=== PATIENT | female | born 1990 | race Caucasian/White ===

== ENCOUNTER 2017-09-13 10:13 | Emergency (ER) | payer OTHER ==
[2017-09-13] MEDS ORDERED: LIDOCAINE VISCOUS 2% SOLN 15 ML UDC ONE (11:09)
[2017-09-13] MEDS ORDERED: SMZ./TMP. 800/160 MG TABLET ONE (11:39)
--- NOTE | 2017-09-13 12:04 | ER ---
Nurse's Notes [facility] Name: Mirta Norton Age: 27 yrs Sex: Female : 1990 Arrival Date: 09/13/2017 Time: 10:16 Bed 19 Private MD: None, None Diagnosis: Cyst of Bartholin's gland Presentation: 09/13 10:24 Presenting complaint: Patient states: Bartholin's cyst that became inflamed today. aj Patient reports she has had this cyst drained and marsupialize previously. Transition of care: patient was not received from another setting of care. Onset of symptoms was September 13, 2017. Initial Sepsis Screen: Does the patient meet any 2 criteria? No. Patient's initial sepsis screen is negative. Does the patient have a suspected source of infection? No. Patient's initial sepsis screen is negative. Care prior to arrival: None. 10:24 Method Of Arrival: Ambulatory aj 10:24 Acuity: FILEMON 4 aj Triage Assessment: 10:25 General: Appears in no apparent distress. uncomfortable, Behavior is calm, cooperative, aj appropriate for age. Pain: Complains of pain in right labia minora and left labia minora. Neuro: Level of Consciousness is awake, alert, obeys commands, Oriented to person, place, time, situation, Appropriate for age. Respiratory: Airway is patent Respiratory effort is even, unlabored, Respiratory pattern is regular, symmetrical. GI: Reports. : Reports pain in suprapubic area. Derm: Skin is intact, is healthy with good turgor, Skin is pink, warm \T\ dry. normal. 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 - Social history:: Smoking status: Patient/guardian denies using tobacco. Screenin:33 Abuse screen: Denies threats or abuse. Nutritional screening: No deficits noted. em Tuberculosis screening: No symptoms or risk factors identified. Fall Risk None identified. Assessment: 10:44 General: Appears in no apparent distress. uncomfortable, Behavior is cooperative, em Reports having a problem in her pelvic area. Pain: Complains of pain in pelvis Pain currently is 10 out of 10 on a pain scale. Neuro: Level of Consciousness is awake, alert, obeys commands, Oriented to person, place, time, situation. Cardiovascular: Capillary refill < 3 seconds Patient's skin is warm and dry. Respiratory: Airway is patent Respiratory effort is even, unlabored, Respiratory pattern is regular, symmetrical. GI: Abdomen is flat. : No signs and/or symptoms were reported regarding the genitourinary system. EENT: No signs and/or symptoms were reported regarding the EENT system. Derm: Skin is intact, Skin is pink, warm \T\ dry. Musculoskeletal: Range of motion: intact in all extremities. 11:00 Reassessment: Patient appears in no apparent distress at this time. I agree with the iw above assessment by Rell Otero LVN. 11:30 Reassessment: Patient appears in no apparent distress at this time. Patient and/or em family updated on plan of care and expected duration. Pain level reassessed. Patient is alert, oriented x 3, equal unlabored respirations, skin warm/dry/pink. 12:20 Reassessment: Patient appears in no apparent distress at this time. Patient and/or em family updated on plan of care and expected duration. Pain level reassessed. Patient is alert, oriented x 3, equal unlabored respirations, skin warm/dry/pink. Vital Signs: 10:25 BP 124 / 97; Pulse 119; Resp 20; Temp 98.1; Pulse Ox 100% on R/A; Weight 70.31 kg; aj Height 5 ft. 0 in. (152.40 cm); Pain 9/10; 11:41 BP 117 / 82; Pulse 80; Resp 14; Pulse Ox 100% on R/A; mh5 10:25 Body Mass Index 30.27 (70.31 kg, 152.40 cm) aj ED Course: 10:16 Patient arrived in ED. mr 10:17 None, None is Private Physician. mr 10:25 Triage completed. aj 10:25 Arm band placed on left wrist. Patient placed in an exam room. aj 10:28 Loraine Ridley FNP-C [facility]. kb 10:28 Cornell Burch MD is Attending Physician. kb 10:32 Rell Otero LVN is Primary Nurse. em 10:33 Patient has correct armband on for positive identification. Placed in gown. Bed in low em position. Call light in reach. 12:23 Cynthia Brady MD is Referral Physician. kb 12:30 No provider procedures requiring assistance completed. Patient did not have IV access em during this emergency room visit. Administered Medications: 11:15 Drug: Viscous Lidocaine Liquid (4 %) 10 ml {Note: administered per NP. Loraine} Route: em Mucous Membrane; 12:00 Follow up: Response: No adverse reaction; Pain is decreased em 11:45 Drug: Bactrim (160 mg-800 mg (DS) 1 tablet Route: PO; em 12:27 Follow up: Response: No adverse reaction em Outcome: 12:04 Discharge ordered by MD. kb 12:30 Discharged to home ambulatory. em 12:30 Condition: good 12:30 Discharge instructions given to patient. 12:30 Instructed on discharge instructions, follow up and referral plans. medication usage, Demonstrated understanding of instructions, follow-up care, medications, Prescriptions given X 2. 12:31 Patient left the ED. em Signatures: Loraine Ridley, MARBLEIZING MACHINE TENDER-C MARBLEIZING MACHINE TENDER-Ckb Noreen Pires RN Tatianna Samayoa mr Rell Otero LVN LVN em María Elena Jane, TIARRA MAYEN Tatianna Benson [facility] Corrections: (The following items were deleted from the chart) 10:33 10:33 No provider procedures requiring assistance completed. em em
--- NOTE | 2017-09-13 12:04 | EDPHYS ---
Physician Documentation [facility] Name: Mirta Norton Age: 27 yrs Sex: Female : 1990 Arrival Date: 09/13/2017 Time: 10:16 Bed 19 Private MD: None, None ED Physician Cornell Burch HPI: 09/13 11:13 This 27 yrs old Female presents to ER via Ambulatory with complaints of Cyst. kb 11:51 the patient presents with a swollen area of the right labia majora and right labia kb minora. Description: erythematous, swollen. Onset: The symptoms/episode began/occurred yesterday. Possible cause(s): history of bartholin cyst . Associated signs and symptoms: Pertinent positives: erythema, swelling, Pertinent negatives: discharge, drainage, foreign body sensation, fever, headache, nausea, shortness of breath, vomiting. Modifying factors: the symptoms are alleviated by nothing, the symptoms are aggravated by walking, pressure, sitting, touching. Severity of symptoms: At their worst the symptoms were moderate, in the emergency department the symptoms are unchanged. The patient has experienced similar episodes in the past, multiple times, today's symptoms are similar. The patient has not recently seen a physician. Pt states she has a bartholin cyst that she has had drained 5 times. States the last time she had marsupialization done, which was April 2017, and hasn't had any issues since then. States she just moved here a month ago and is not established with any doctors here. Started feeling pressure to vaginal area yesterday and today it was painful. States it isn't as bad as it has been in the past. Denies fever, drainage.. 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 - Social history:: Smoking status: Patient/guardian denies using tobacco. ROS: 11:55 Constitutional: Negative for fever, chills, and weight loss, Cardiovascular: Negative kb for chest pain, palpitations, and edema, Respiratory: Negative for shortness of breath, cough, wheezing, and pleuritic chest pain, Abdomen/GI: Negative for abdominal pain, nausea, vomiting, diarrhea, and constipation, Back: Negative for injury and pain, MS/Extremity: Negative for injury and deformity, Neuro: Negative for headache, weakness, numbness, tingling, and seizure. 11:55 : Positive for vaginal pain. 11:55 Skin: Positive for erythema, swelling, of the right labia majora and right labia minora. Exam: 12:00 Constitutional: This is a well developed, well nourished patient who is awake, alert, kb and in no acute distress. Head/Face: Normocephalic, atraumatic. Chest/axilla: Normal chest wall appearance and motion. Nontender with no deformity. No lesions are appreciated. Cardiovascular: Regular rate and rhythm with a normal S1 and S2. No gallops, murmurs, or rubs. Normal PMI, no JVD. No pulse deficits. Respiratory: Lungs have equal breath sounds bilaterally, clear to auscultation and percussion. No rales, rhonchi or wheezes noted. No increased work of breathing, no retractions or nasal flaring. Abdomen/GI: Soft, non-tender, with normal bowel sounds. No distension or tympany. No guarding or rebound. No evidence of tenderness throughout. MS/ Extremity: Pulses equal, no cyanosis. Neurovascular intact. Full, normal range of motion. Neuro: Awake and alert, GCS 15, oriented to person, place, time, and situation. Cranial nerves II-XII grossly intact. Motor strength 5/5 in all extremities. Sensory grossly intact. Cerebellar exam normal. Normal gait. 12:00 : Pelvic Exam: External exam: erythema is noted, inflammation to right labia. No fluctuance or induration noted to area. No area that needs I\T\D noted. Incision from previous intervention remains open. No drainage to area. . Vital Signs: 10:25 BP 124 / 97; Pulse 119; Resp 20; Temp 98.1; Pulse Ox 100% on R/A; Weight 70.31 kg; aj Height 5 ft. 0 in. (152.40 cm); Pain 9/10; 11:41 BP 117 / 82; Pulse 80; Resp 14; Pulse Ox 100% on R/A; mh5 10:25 Body Mass Index 30.27 (70.31 kg, 152.40 cm) aj MDM: 10:29 Patient medically screened. kb 11:56 Data reviewed: vital signs, nurses notes. Data interpreted: Pulse oximetry: on room air kb is 100 %. Interpretation: normal. Counseling: I had a detailed discussion with the patient and/or guardian regarding: the historical points, exam findings, and any diagnostic results supporting the discharge/admit diagnosis, the need for outpatient follow up, an OB/Gyne specialist, to return to the emergency department if symptoms worsen or persist or if there are any questions or concerns that arise at home. ED course: Pt educated on need for follow up with [facility]. No fluctuant or indurated area noted upon palpation. Inflammation and irritation of right labia minora and majora noted. Pain upon palpation of area. Incision from marsupialization remains opened. Pt educated to take Bactrim as prescribed, use sitz baths, dermaplast, cooled gel packs to vaginal area for relief of symptoms as tolerated. Verbal understanding received. Pt to return if symptoms get worse. Administered Medications: 11:15 Drug: Viscous Lidocaine Liquid (4 %) 10 ml {Note: administered per CHARMAINE Baron.} Route: em Mucous Membrane; 12:00 Follow up: Response: No adverse reaction; Pain is decreased em 11:45 Drug: Bactrim (160 mg-800 mg (DS) 1 tablet Route: PO; em 12:27 Follow up: Response: No adverse reaction em Disposition: 13:37 Co-signature as Attending Physician, Cornell Burch MD I agree with the assessment and estiven plan of care. Disposition: 09/13/17 12:04 Discharged to Home. Impression: Cyst of Bartholin's gland. - Condition is Stable. - Discharge Instructions: Bartholin Cyst or Abscess. - Prescriptions for Bactrim DS 800- 160 mg Oral Tablet - take 1 tablet by ORAL route every 12 hours for 10 days; 20 tablet. Tylenol- Codeine #3 300-30 mg Oral Tablet - take 1 tablet by ORAL route every 6 hours As needed; 15 tablet. - Medication Reconciliation Form, Thank You Letter, Antibiotic Education, Prescription Opioid Use form. - Follow up: Emergency Department; When: As needed; Reason: Worsening of condition. Follow up: Private Physician; When: 2 - 3 days; Reason: Recheck today's complaints, Continuance of care, Re-evaluation by your physician. Follow up: Cynthia Brady MD; When: 1 - 2 days; Reason: Recheck today's complaints. Signatures: Loraine Ridley FNP-C DISTILLATION OPERATOR-Noreen Oconnor RN RN aj Anderson, Corey, MD MD cha Munoz, Edgar, SUPERVISOR PRINT LINE SUPERVISOR PRINT LINE em Corrections: (The following items were deleted from the chart) 12:03 11:56 ED course: Pt educated on need for follow up with [facility]. No fluctuant or indurated kb area noted upon palpation. Inflammation and irritation of right labia minora and majora noted. Pain upon palpation of area. Incision from marsupialization remains opened. Pt educated to take Bactrim as prescribed, use sitz baths, dermaplast, cooled gel packs to vaginal area for relief of symptoms as tolerated. Verbal understanding received. . kb 12:23 12:04 09/13/2017 12:04 Discharged to Home. Impression: Cyst of Bartholin's gland. kb Condition is Stable. Forms are Medication Reconciliation Form, Thank You Letter, Antibiotic Education, Prescription Opioid Use. Follow up: Emergency Department; When: As needed; Reason: Worsening of condition. Follow up: Private Physician; When: 2 - 3 days; Reason: Recheck today's complaints, Continuance of care, Re-evaluation by your physician. kb 12:27 10:38 Urine Dipstick-Ancillary ordered. em 12:27 10:38 Urine Test ordered. em 12:31 12:23 09/13/2017 12:04 Discharged to Home. Impression: Cyst of Bartholin's gland. em Condition is Stable. Discharge Instructions: Bartholin Cyst or Abscess. Prescriptions for Bactrim DS 800-160 mg Oral Tablet - take 1 tablet by ORAL route every 12 hours for 10 days; 20 tablet, Tylenol-Codeine #3 300-30 mg Oral Tablet - take 1 tablet by ORAL route every 6 hours As needed; 15 tablet. and Forms are Medication Reconciliation Form, Thank You Letter, Antibiotic Education, Prescription Opioid Use. Follow up: Emergency Department; When: As needed; Reason: Worsening of condition. Follow up: Private Physician; When: 2 - 3 days; Reason: Recheck today's complaints, Continuance of care, Re-evaluation by your physician. Follow up: Cynthia Brady; When: 1 - 2 days; Reason: Recheck today's complaints. kb
== END 2017-09-13 12:31 | disposition home or self-care (01) ==
LOC: ER 10:13
DX: N75.0 Cyst of Bartholin's gland (principal); Z88.5 Allergy status to narcotic agent; Z88.6 Allergy status to analgesic agent; Z91.040 Latex allergy status; Z91.048 Other nonmedicinal substance allergy status
CPT/HCPCS: 99283

== ENCOUNTER 2018-03-10 09:27 | Emergency (ER) | payer BC, OTHER ==
--- NOTE | 2018-03-10 10:38 | EDPHYS ---
Physician Documentation [facility] Name: Mirta Norton Age: 27 yrs Sex: Female : 1990 Arrival Date: 03/10/2018 Time: 09:32 Bed 17 Private MD: ED Physician Wolf Bowser HPI: 03/10 09:58 This 27 yrs old Female presents to ER via Ambulatory with complaints of rn Breast Problem. 09:58 Reports left breast problem, has been having redness and intermittent swelling to left rn breast for 3 days, + mild fever, no trauma, no hx of breast cancer in family, no drainage, hurts to touch breast. . Onset: The symptoms/episode began/occurred 3 day(s) ago. Severity of symptoms: At their worst the symptoms were mild in the emergency department the symptoms are unchanged. The patient has not experienced similar symptoms in the past. The patient has not recently seen a physician. 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 - Ebola Screening: : No symptoms or risks identified at this time. - Family history:: not pertinent. - Social history:: Smoking status: unknown. - Hospitalizations: : No recent hospitalization is reported. ROS: 09:58 Constitutional: Negative for chills, and weight loss Eyes: Negative for injury, pain, rn redness, and discharge, Cardiovascular: Negative for palpitations, and edema, Respiratory: Negative for shortness of breath, cough, wheezing, and pleuritic chest pain, Abdomen/GI: Negative for abdominal pain, nausea, vomiting, diarrhea, and constipation, MS/Extremity: Negative for injury and deformity, Skin: Negative for injury, rash, and discoloration, Neuro: Negative for headache, weakness, numbness, tingling, and seizure. Exam: 09:58 Constitutional: This is a well developed, well nourished patient who is awake, alert, rn and in no acute distress. Appears a little anxious Head/Face: Normocephalic, atraumatic. Chest/axilla: + left upper/outer breast with faint erythema that is somewhat tender, no swelling or focal mass, no fluctuance, + mild streaking toward left axilla with mild tender LAD. No nipple changes. No necrosis of skin, no bullae. No pustular lesions. Vital Signs: 09:42 BP 135 / 84; Pulse 95; Resp 18 S; Temp 99.3(O); Pulse Ox 99% on R/A; aa5 MDM: 09:37 Patient medically screened. rn 09:58 Differential Diagnosis cellulitis, zoster, inflammatory breast cancer. . Data reviewed: rn vital signs, nurses notes, and as a result, I will discharge patient. Counseling: I had a detailed discussion with the patient and/or guardian regarding: the historical points, exam findings, and any diagnostic results supporting the discharge/admit diagnosis, the need for outpatient follow up, to return to the emergency department if symptoms worsen or persist or if there are any questions or concerns that arise at home. Special discussion: I discussed with the patient/guardian in detail that at this point there is no indication for admission to the hospital. It is understood, however, that if the symptoms persist or worsen the patient needs to return immediately for re-evaluation. 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 . Administered Medications: No medications were administered Disposition: 03/10/18 10:03 Discharged to Home. Impression: Left breast pain and swelling. - Condition is Stable. - Discharge Instructions: Breast Self-Awareness, Breast Tenderness. - Prescriptions for Clindamycin HCl 300 mg Oral Capsule - take 1 capsule by ORAL route every 6 hours for 10 days; 40 capsule. Doxycycline Monohydrate 100 mg Oral Tablet - take 1 tablet by ORAL route every 12 hours for 10 days; 20 tablet. - Medication Reconciliation Form, Thank You Letter, Antibiotic Education, Prescription Opioid Use form. - Follow up: Private Physician; When: As needed; Reason: Recheck today's complaints, Re-evaluation by your physician. - Problem is new. - Symptoms are unchanged. Signatures: Wolf Bowser MD MD rn Calderon, Audri, RN RN aa5 Amanda Gilbert RN RN jl7 Corrections: (The following items were deleted from the chart) 10:13 10:03 03/10/2018 10:03 Discharged to Home. Impression: Left breast pain and swelling. jl7 Condition is Stable. Forms are Medication Reconciliation Form, Thank You Letter, Antibiotic Education, Prescription Opioid Use. Follow up: Private Physician; When: As needed; Reason: Recheck today's complaints, Re-evaluation by your physician. Problem is new. Symptoms are unchanged. rn
--- NOTE | 2018-03-10 10:39 | ER ---
Nurse's Notes [facility] Name: Mirta Norton Age: 27 yrs Sex: Female : 1990 Arrival Date: 03/10/2018 Time: 09:32 Bed 17 Private MD: Diagnosis: Left breast pain and swelling Presentation: 03/10 09:36 Presenting complaint: Patient states: left breast pain x 2 weeks ago. Pt reports aa5 tenderness and redness to left breast x 2-3 days ago. 09:36 Transition of care: patient was not received from another setting of care. Onset of aa5 symptoms was 2018. Risk Assessment: Do you want to hurt yourself or someone else? Patient reports no desire to harm self or others. Initial Sepsis Screen: Does the patient meet any 2 criteria? No. Patient's initial sepsis screen is negative. Does the patient have a suspected source of infection? No. Patient's initial sepsis screen is negative. Care prior to arrival: None. 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 - Ebola Screening: : No symptoms or risks identified at this time. - Family history:: not pertinent. - Social history:: Smoking status: unknown. - Hospitalizations: : No recent hospitalization is reported. Screenin:50 Abuse screen: Denies threats or abuse. Denies injuries from another. Nutritional jl7 screening: No deficits noted. Tuberculosis screening: No symptoms or risk factors identified. Fall Risk None identified. Assessment: 09:50 General: Appears in no apparent distress. uncomfortable, Behavior is calm, cooperative, jl7 appropriate for age. Pain: Complains of pain in left breast Pain does not radiate. Pain currently is 8 out of 10 on a pain scale. Quality of pain is described as tender, Pain began 2-3 days ago. Is continuous. Neuro: Level of Consciousness is awake, alert, obeys commands, Oriented to person, place, time, situation. Cardiovascular: Patient's skin is warm and dry. Respiratory: Airway is patent Respiratory effort is even, unlabored, Respiratory pattern is regular, symmetrical. GI: No signs and/or symptoms were reported involving the gastrointestinal system. : No signs and/or symptoms were reported regarding the genitourinary system. EENT: No signs and/or symptoms were reported regarding the EENT system. Derm: Skin is pink, warm \T\ dry. Redness and warmth noted to left breast. Musculoskeletal: No signs and/or symptoms reported regarding the musculoskeletal system. Vital Signs: 09:42 BP 135 / 84; Pulse 95; Resp 18 S; Temp 99.3(O); Pulse Ox 99% on R/A; aa5 ED Course: 09:32 Patient arrived in ED. mr 09:36 Arm band placed on Patient placed in an exam room, on a stretcher. aa5 09:37 Wolf Bowser MD is Attending Physician. rn 09:40 Triage completed. aa5 09:50 Patient has correct armband on for positive identification. Placed in gown. Bed in low jl7 position. Call light in reach. Side rails up X 1. Pulse ox on. NIBP on. Warm blanket given. 09:55 breast exam. jl7 09:58 Amanda Gilbert, RN is Primary Nurse. jl7 10:12 Patient did not have IV access during this emergency room visit. jl7 Administered Medications: No medications were administered Outcome: 10:03 Discharge ordered by . rn 10:12 Discharged to home ambulatory. jl7 10:12 Condition: stable 10:12 Discharge instructions given to patient, Instructed on discharge instructions, follow up and referral plans. medication usage, Demonstrated understanding of instructions, follow-up care, medications, Prescriptions given X 2. 10:13 Patient left the ED. jl7 Signatures: Henry Jennifer castro Wolf Bowser MD MD rn Calderon, Audri, RN RN aa5 Amanda Gilbert RN RN jl7 Corrections: (The following items were deleted from the chart) 09:44 09:42 BP 135 / 84; Pulse 95bpm; Resp 18bpm; Spontaneous; Pulse Ox 99% RA; aa5 aa5
== END 2018-03-10 10:13 | disposition home or self-care (01) ==
LOC: ER 09:27
DX: N63.21 Unspecified lump in the left breast, upper outer quadrant (principal); N64.4 Mastodynia
CPT/HCPCS: 99283

== ENCOUNTER 2018-03-17 14:18 | Emergency (ER) | payer BC ==
[2018-03-17] MEDS ORDERED: PEN G BENZ LA 2.4 MU/4 ML SYRINGE IM ONE (16:03)
--- NOTE | 2018-03-17 16:11 | ER ---
Nurse's Notes [facility] Name: Mirta Norton Age: 27 yrs Sex: Female : 1990 Arrival Date: 03/17/2018 Time: 14:21 Bed 15 Private MD: None, None Diagnosis: Streptococcal pharyngitis Presentation: 03/17 14:25 Presenting complaint: Patient states: fever, Tmax 103, sore throat x 1 day. Transition sv of care: patient was not received from another setting of care. Onset of symptoms was March 16, 2018. Care prior to arrival: None. 14:25 Method Of Arrival: Ambulatory sv 14:25 Acuity: FILEMON 4 sv 14:27 Care prior to arrival: Medication(s) given: Motrin, 800 mg, taken at 1200 today. sv 15:00 Risk Assessment: Do you want to hurt yourself or someone else? Patient reports no sg desire to harm self or others. Initial Sepsis Screen: Does the patient meet any 2 criteria? No. Patient's initial sepsis screen is negative. Does the patient have a suspected source of infection? No. Patient's initial sepsis screen is negative. Triage Assessment: 14:28 General: Appears in no apparent distress. uncomfortable, Behavior is calm, cooperative. sv General: Reports fever for 12-24 hours. Pain: Complains of pain in left aspect of posterior pharynx and right aspect of posterior pharynx Pain currently is 6 out of 10 on a pain scale. Neuro: Level of Consciousness is awake, alert, obeys commands, Oriented to person, place, time, situation, Moves all extremities. Full function Gait is steady, Speech is normal. Respiratory: Respiratory effort is even, unlabored, Respiratory pattern is regular, symmetrical. Derm: Skin is pink, warm \T\ dry. Historical: - Allergies: 14:26 Latex, Natural Rubber; sv 14:26 SHELLFISH; sv 14:26 tramadol; sv - PMHx: 14:26 Asthma; sv - PSHx: 14:26 Tubal ligation; Adenoids; sv - Immunization history:: Flu vaccine is not up to date. - Social history:: Smoking status: Patient uses tobacco products, smokes one pack cigarettes per day. - Ebola Screening: : No symptoms or risks identified at this time. Screenin:35 Abuse screen: Denies threats or abuse. Denies injuries from another. Nutritional sg screening: No deficits noted. Tuberculosis screening: No symptoms or risk factors identified. Never had TB. Fall Risk None identified. Assessment: 14:58 General: Appears in no apparent distress. uncomfortable, well groomed, well developed, sg well nourished, Behavior is calm, cooperative, appropriate for age. Pain: Complains of pain in sore throat. Neuro: No deficits noted. Cardiovascular: Patient's skin is warm and dry. Chest pain is denied. Respiratory: Airway is patent Respiratory effort is even, unlabored, Respiratory pattern is regular, symmetrical, Breath sounds are clear. GI: No signs and/or symptoms were reported involving the gastrointestinal system. : No signs and/or symptoms were reported regarding the genitourinary system. EENT: Nares are clear bilaterally Oral mucosa is moist. Throat is reddened has enlarged tonsils bilaterally. Derm: Skin is pink, warm \T\ dry. Musculoskeletal: No signs and/or symptoms reported regarding the musculoskeletal system. Vital Signs: 14:26 BP 114 / 79; Pulse 61; Resp 20; Temp 98.6; Pulse Ox 100% ; Weight 74.84 kg; Height 5 sv ft. 0 in. (152.40 cm); Pain 6/10; 15:39 BP 112 / 77; Pulse 66; Resp 17; Pulse Ox 100% ; Pain 6/10; ss 14:26 Body Mass Index 32.22 (74.84 kg, 152.40 cm) sv ED Course: 14:21 Patient arrived in ED. sb2 14:21 None, None is Private Physician. sb2 14:26 Triage completed. sv 14:28 Arm band placed on. sv 14:31 Loraine Ridley FNP-C is PHCP. kb 14:31 Baltazar Bradley MD is Attending Physician. kb 14:35 Strep swab sent to lab. sg 14:58 Alvino Lewis, TIARRA is Primary Nurse. sg 14:59 No provider procedures requiring assistance completed. sg 15:00 Patient has correct armband on for positive identification. Bed in low position. Call sg light in reach. Side rails up X2. Pulse ox on. NIBP on. 03/18 09:49 Patient did not have IV access during this emergency room visit. sg Administered Medications: 03/17 16:00 Drug: Bicillin L-A 2.4 million units {Note: left ventrogluteal.} Route: IM; Site: Other; Outcome: 16:10 Discharge ordered by . carlos alberto 16:11 Discharged to home ambulatory, with family. sg 16:11 Condition: good 16:11 Discharge instructions given to patient, Instructed on discharge instructions, follow up and referral plans. safety practices, Demonstrated understanding of instructions, follow-up care. 16:15 Patient left the ED. Signatures: Loraine Ridley, MANAGER DRUG SAFETY-C MANAGER DRUG SAFETY-Melani Guevara, RN RN Alvino Lewis RN RN Liyah Dobson RN RN Giselle Zimmerman sb2 Corrections: (The following items were deleted from the chart) 14:28 14:26 Pulse 61bpm; Resp 20bpm; Pulse Ox 100%; Temp 98.6F; 74.84 kg; Height 5 ft. 0 in.; sv BMI: 32.2; Pain 6/10; sv
--- NOTE | 2018-03-17 16:11 | EDPHYS ---
Physician Documentation [facility] Name: Mirta Norton Age: 27 yrs Sex: Female : 1990 Arrival Date: 03/17/2018 Time: 14:21 Bed 15 Private MD: None, None ED Physician Baltazar Bradley HPI: 03/17 16:00 This 27 yrs old Female presents to ER via Ambulatory with complaints of Fever.kb 16:00 The patient presents with sore throat. The patient describes throat pain as constant. kb Onset: The symptoms/episode began/occurred yesterday. Severity of symptoms: At their worst the symptoms were moderate, in the emergency department the symptoms are unchanged. Modifying factors: The symptoms are alleviated by nothing, the symptoms are aggravated by swallowing, Patient's oral intake status: good The patient has had contact with sick. Associated signs and symptoms: Pertinent positives: fever, Sore throat. The patient has not experienced similar symptoms in the past. The patient has not recently seen a physician. Pt reports her throat started hurting yesterday with fever of 103. States she is being tested for possible breast cancer and cannot go to the breast cancer center with the fever. Son had strep last week and he was given a shot of bicillin. Historical: - Allergies: 14:26 Latex, Natural Rubber; sv 14:26 SHELLFISH; sv 14:26 tramadol; sv - PMHx: 14:26 Asthma; sv - PSHx: 14:26 Tubal ligation; Adenoids; sv - Immunization history:: Flu vaccine is not up to date. - Social history:: Smoking status: Patient uses tobacco products, smokes one pack cigarettes per day. - Ebola Screening: : No symptoms or risks identified at this time. ROS: 15:59 Cardiovascular: Negative for chest pain, palpitations, and edema, Respiratory: Negative kb for shortness of breath, cough, wheezing, and pleuritic chest pain, Abdomen/GI: Negative for abdominal pain, nausea, vomiting, diarrhea, and constipation, Back: Negative for injury and pain, MS/Extremity: Negative for injury and deformity, Skin: Negative for injury, rash, and discoloration, Neuro: Negative for headache, weakness, numbness, tingling, and seizure. 15:59 Constitutional: Positive for fever, Negative for body aches, chills, fatigue, malaise, poor PO intake, weight loss. 15:59 ENT: Positive for sore throat. Exam: 15:59 Constitutional: This is a well developed, well nourished patient who is awake, alert, kb and in no acute distress. Head/Face: Normocephalic, atraumatic. Chest/axilla: Normal chest wall appearance and motion. Nontender with no deformity. No lesions are appreciated. Cardiovascular: Regular rate and rhythm with a normal S1 and S2. No gallops, murmurs, or rubs. Normal PMI, no JVD. No pulse deficits. Respiratory: Lungs have equal breath sounds bilaterally, clear to auscultation and percussion. No rales, rhonchi or wheezes noted. No increased work of breathing, no retractions or nasal flaring. Abdomen/GI: Soft, non-tender, with normal bowel sounds. No distension or tympany. No guarding or rebound. No evidence of tenderness throughout. Skin: Warm, dry with normal turgor. Normal color with no rashes, no lesions, and no evidence of cellulitis. MS/ Extremity: Pulses equal, no cyanosis. Neurovascular intact. Full, normal range of motion. Neuro: Awake and alert, GCS 15, oriented to person, place, time, and situation. Cranial nerves II-XII grossly intact. Motor strength 5/5 in all extremities. Sensory grossly intact. Cerebellar exam normal. Normal gait. 15:59 ENT: Posterior pharynx: Airway: normal, Tonsils: bilaterally enlarged, with erythema, with exudate, Uvula: normal, midline, swelling, that is moderate, erythema, that is marked, exudate, that is moderate. Vital Signs: 14:26 BP 114 / 79; Pulse 61; Resp 20; Temp 98.6; Pulse Ox 100% ; Weight 74.84 kg; Height 5 sv ft. 0 in. (152.40 cm); Pain 6/10; 15:39 BP 112 / 77; Pulse 66; Resp 17; Pulse Ox 100% ; Pain 6/10; ss 14:26 Body Mass Index 32.22 (74.84 kg, 152.40 cm) sv MDM: 14:31 Patient medically screened. kb 15:57 Data reviewed: vital signs, nurses notes. Data interpreted: Pulse oximetry: on room air kb is 100 %. Interpretation: normal. Counseling: I had a detailed discussion with the patient and/or guardian regarding: the historical points, exam findings, and any diagnostic results supporting the discharge/admit diagnosis, lab results, the need for outpatient follow up, an ENT specialist, to return to the emergency department if symptoms worsen or persist or if there are any questions or concerns that arise at home. ED course: Will treat throat infection with antibiotics based on physical exam. Pt requests bicillin injection.. 03/17 14:36 Order name: Strep; Complete Time: 15:50 kb 03/17 15:53 Order name: Throat Culture EDMS Administered Medications: 16:00 Drug: Bicillin L-A 2.4 million units {Note: left ventrogluteal.} Route: IM; Site: Other; Disposition: 18:55 Co-signature as Attending Physician, Baltazar Bradley MD available for consultation at [facility] all times. . Disposition: 03/17/18 16:10 Discharged to Home. Impression: Streptococcal pharyngitis. - Condition is Stable. - Discharge Instructions: Strep Throat, [id number]. - Work release form, Medication Reconciliation Form, Thank You Letter, Antibiotic Education, Prescription Opioid Use form. - Follow up: Emergency Department; When: As needed; Reason: Worsening of condition. Follow up: Private Physician; When: 2 - 3 days; Reason: Recheck today's complaints, Continuance of care, Re-evaluation by your physician. Signatures: Dispatcher [employer] EDMD Loraine Ridley, ANDRE OTEROPMelani Schwartz RN RN sv Gay, Steven, RN RN sg Smirch, Shelby, RN RN ss Singer, Phillip, MD MD ps1 Corrections: (The following items were deleted from the chart) 16:15 16:10 03/17/2018 16:10 Discharged to Home. Impression: Streptococcal pharyngitis. ss Condition is Stable. Forms are Medication Reconciliation Form, Thank You Letter, Antibiotic Education, Prescription Opioid Use. Follow up: Emergency Department; When: As needed; Reason: Worsening of condition. Follow up: Private Physician; When: 2 - 3 days; Reason: Recheck today's complaints, Continuance of care, Re-evaluation by your physician. kb
== END 2018-03-17 16:15 | disposition home or self-care (01) ==
LOC: ER 14:18
DX: J02.0 Streptococcal pharyngitis (principal); F17.210 Nicotine dependence, cigarettes, uncomplicated
CPT/HCPCS: 87070; 87081; 96372; 99283; J0561

== ENCOUNTER 2018-05-16 23:12 | Emergency (ER) | payer BC ==
[2018-05-16] MEDS ORDERED: IPRATROPIUM BROM 0.5MG/2.5ML ONE (23:47)
[2018-05-16] MEDS ORDERED: DEXAMETHASONE 10 MG/ML VIAL ONE (23:47)
[2018-05-16] MEDS ORDERED: ALBUTEROL 2.5 MG/3 ML NEB SOL ONE (23:47)
[2018-05-16] MEDS ORDERED: DIPHENHYDRAMINE 50 MG/ML VIAL ONE (23:47)
[2018-05-16] MEDS ORDERED: NA CHLORIDE 0.9% 1,000 ML ONE (23:47)
[2018-05-16] MEDS ORDERED: predniSONE 20 MG TAB ONE (23:47)
[2018-05-16] MEDS ORDERED: FAMOTIDINE 20 MG/2 ML VIAL IV ONE (23:50)
[2018-05-16 23:59] LABS: Absolute Lymphocytes (CBC) 5.6 K/uL (0.7-4.9); Absolute Monocytes 0.8 K/uL (0.1-1.3); Absolute Neutrophil 6.2 K/uL (1.8-8.0); Basophils % 0.1 % (0-1.3); Eosinophils % 3.2 % (0-4.4); Lymphocytes % 42.8 % (15.3-44.8); MPV 8.3 fL (7.6-11.3); Monocytes % 6.3 % (3.3-12.3); RBC Red Blood Cell Count 4.77 M/uL (3.86-4.86)
[2018-05-17 00:31] LABS: Albumin 3.6 g/dL (3.4-5.0); Bilirubin Total 0.3 mg/dL (0.2-1.0)
[2018-05-17 00:33] LABS: Potassium 2.6 mmol/L (3.5-5.1)
[2018-05-17 00:38] LABS: Urine Bacteria 20-50 /HPF (<20); Urine Culture Reflex Order REFLEXED; Urine RBC NONE SEEN /HPF (NONE SEEN)
[2018-05-17 00:40] LABS: Urine Blood NEGATIVE (NEG); Urine Glucose TRACE (NEG); Urine Protein NEGATIVE (NEG); Urine Specific Gravity <1.005 (1.005-1.030); Urine pH 5.5 (5.0-7.0)
--- NOTE | 2018-05-17 00:43 | EDPHYS ---
Physician Documentation [facility] Name: Mirta Norton Age: 27 yrs Sex: Female : 1990 Arrival Date: 05/16/2018 Time: 23:13 Bed 2 Private MD: ED Physician Cornell Burch HPI: 05/16 23:32 This 27 yrs old Female presents to ER via EMS with complaints of allergic estiven reaction, hives and cough. 23:32 The patient presents with hoarse voice, shortness of breath, wheezing. Onset: The estiven symptoms/episode began/occurred just prior to arrival. Associated signs and symptoms: Pertinent positives: hives, light headed, rash, shortness of breath. Possible causes: The patient has no known obvious cause for the symptoms. 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 At home the patient or guardian has treated the symptoms with Benadryl, EpiPen, steroids. Severity of symptoms: At their worst the symptoms were moderate in the emergency department the symptoms are unchanged. 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 - Social history:: Smoking status: Patient uses tobacco products, smokes one pack cigarettes per day. - Ebola Screening: : No symptoms or risks identified at this time. - Family history:: not pertinent. ROS: 23:32 Constitutional: Negative for fever, chills, and weight loss, Eyes: Negative for injury, estiven pain, redness, and discharge, ENT: Negative for injury, pain, and discharge, Neck: Negative for injury, pain, and swelling, Cardiovascular: Negative for chest pain, palpitations, and edema, Abdomen/GI: Negative for abdominal pain, nausea, vomiting, diarrhea, and constipation, Back: Negative for injury and pain, : Negative for injury, bleeding, discharge, and swelling, MS/Extremity: Negative for injury and deformity, Neuro: Negative for headache, weakness, numbness, tingling, and seizure, Psych: Negative for depression, anxiety, suicide ideation, homicidal ideation, and hallucinations, Allergy/Immunology: Negative for hives, rash, and allergies, Endocrine: Negative for neck swelling, polydipsia, polyuria, polyphagia, and marked weight changes, Hematologic/Lymphatic: Negative for swollen nodes, abnormal bleeding, and unusual bruising. 23:32 Respiratory: Positive for cough, shortness of breath, on exertion. 23:32 Abdomen/GI: Negative for abdominal pain. Exam: 23:32 Constitutional: This is a well developed, well nourished patient who is awake, alert, estiven and in no acute distress. Head/Face: Normocephalic, atraumatic. Eyes: Pupils equal round and reactive to light, extra-ocular motions intact. Lids and lashes normal. Conjunctiva and sclera are non-icteric and not injected. Cornea within normal limits. Periorbital areas with no swelling, redness, or edema. ENT: Nares patent. No nasal discharge, no septal abnormalities noted. Tympanic membranes are normal and external auditory canals are clear. Oropharynx with no redness, swelling, or masses, exudates, or evidence of obstruction, uvula midline. Mucous membranes moist. Neck: Trachea midline, no thyromegaly or masses palpated, and no cervical lymphadenopathy. Supple, full range of motion without nuchal rigidity, or vertebral point tenderness. No Meningismus. Chest/axilla: Normal chest wall appearance and motion. Nontender with no deformity. No lesions are appreciated. Respiratory: Lungs have equal breath sounds bilaterally, clear to auscultation and percussion. No rales, rhonchi or wheezes noted. No increased work of breathing, no retractions or nasal flaring. Abdomen/GI: Soft, non-tender, with normal bowel sounds. No distension or tympany. No guarding or rebound. No evidence of tenderness throughout. Back: No spinal tenderness. No costovertebral tenderness. Full range of motion. Female : Normal external genitalia. Skin: Warm, dry with normal turgor. Normal color with no rashes, no lesions, and no evidence of cellulitis. MS/ Extremity: Pulses equal, no cyanosis. Neurovascular intact. Full, normal range of motion. Neuro: Awake and alert, GCS 15, oriented to person, place, time, and situation. Cranial nerves II-XII grossly intact. Motor strength 5/5 in all extremities. Sensory grossly intact. Cerebellar exam normal. Normal gait. Psych: Awake, alert, with orientation to person, place and time. Behavior, mood, and affect are within normal limits. 23:32 Cardiovascular: Rate: tachycardic, Rhythm: regular, Pulses: Pulses are 4+ in bilateral radial, brachial, femoral, popliteal, posterior tibial and and dorsalis pedis arteries.. Heart sounds: normal, Edema: is not appreciated, JVD: is not appreciated. Vital Signs: 23:21 BP 129 / 93; Pulse 118; Resp 16; Temp 99.2(O); Pulse Ox 100% on R/A; Weight 79.38 kg 1 (R); 23:45 BP 126 / 79; Pulse 111; Resp 20; Pulse Ox 100% on R/A; 1 05/17 01:59 BP 114 / 78; Pulse 85; Resp 20; Pulse Ox 96% on R/A; Pain 0/10; ed1 03:16 BP 102 / 67; Pulse 69; Resp 16; Temp 97.6(O); Pulse Ox 100% on R/A; Pain 0/10; ed1 MDM: 05/16 23:22 Patient medically screened. [facility] 05/17 00:28 Patient medically screened. [facility] 00:44 Data reviewed: vital signs, nurses notes, lab test result(s), radiologic studies, plain estiven films. 05/16 23:30 Order name: CBC with Diff; Complete Time: 00:10 [facility] 05/16 23:30 Order name: Comprehensive Metabolic Panel; Complete Time: 00:39 [facility] 05/17 00:01 Order name: Test, Serum; Complete Time: 00:43 05/17 00:09 Order name: Urine Dipstick--Ancillary (enter results); Complete Time: 00:41 [facility] 05/17 00:09 Order name: Urine Microscopic Only; Complete Time: 00:39 [facility] 05/17 00:40 Order name: Urine Culture [facility] 05/16 23:30 Order name: Chest Single View XRAY [facility] 05/17 00:41 Order name: PO challenge: juice; Complete Time: 01:06 [facility] Administered Medications: 05/16 23:49 Drug: NS 0.9% 1000 ml Route: IV; Rate: 1 bolus; Site: right antecubital; ed1 05/17 03:19 Follow up: IV Status: Completed infusion; IV Intake: 1000ml ed1 05/16 23:49 Drug: predniSONE 40 mg Route: PO; ed1 05/17 00:44 Follow up: Response: No adverse reaction ed1 00:01 Drug: Albuterol - atroVENT (3:1) (2.5 mg - 0.5 mg) 3 ml Route: Nebulizer; lp1 00:42 Follow up: Response: No change in condition; No change in condition; Pt states "This is ed1 making my cough worse." 00:02 Drug: Decadron - Dexamethasone 10 mg Route: IVP; Site: right antecubital; lp1 00:44 Follow up: Response: No adverse reaction; No change in condition ed1 00:02 Drug: Benadryl 25 mg Route: IVP; Site: right antecubital; lp1 00:43 Follow up: Response: No adverse reaction; No change in condition; No change in ed1 condition' Pt states "I am still itching." 00:02 Drug: Pepcid 40 mg Route: IVP; Site: right antecubital; lp1 00:43 Follow up: Response: No adverse reaction ed1 00:54 Drug: Potassium Chloride 20 mEq Route: IV; Rate: per protocol; Site: right antecubital; ed1 03:00 Follow up: IV Status: Completed infusion lp1 01:06 Drug: Potassium Effervescent Tablet 50 mEq Route: PO; ed1 03:01 Follow up: Response: No adverse reaction lp1 01:07 Drug: Tussionex Pennkinetic ER 5 ml Route: PO; ed1 03:00 Follow up: Response: Marked relief of symptoms lp1 01:07 Drug: Zofran 4 mg Route: IVP; Site: right antecubital; lp1 03:01 Follow up: Response: Nausea is decreased lp1 03:00 Drug: Rocephin - (cefTRIAXone) 1 grams Route: IVPB; Infused Over: 30 mins; Site: right lp1 antecubital; 03:10 Follow up: Response: No adverse reaction; IV Status: Completed infusion ed1 Disposition: 05/17/18 00:42 Discharged to Home. Impression: Allergic contact dermatitis, Urticaria, Bronchitis, not specified as acute or chronic, Cystitis. - Condition is Fair. - Discharge Instructions: Acute Bronchitis, Adult, Allergies, Adult, Hives, Metered Dose Inhaler with Spacer, Upper Respiratory Infection, Adult, Hives, [id number]. - Prescriptions for Benadryl 25 mg Oral Capsule - take 1 capsule by ORAL route every 6 hours As needed; 30 tablet. Pepcid 20 mg Oral Tablet - take 1 tablet by ORAL route every 12 hours for 10 days; 20 tablet. Prednisone 20 mg Oral Tablet - take 2 tablet by ORAL route once daily for 5 days; 10 tablet. Albuterol Sulfate 90 mcg/actuation - inhale 1-2 puff by INHALATION route every 4-6 hours; 1 Inhaler. EpiPen 0.3 mg Injection auto- injector - inject 1 pen by INTRAMUSCULAR route one time Inject into the outer portion of the thigh, through clothing if necessary. Indicated in the emergency treatment of allergic reactions; 1 Container. Albuterol Sulfate 2.5 mg /3 mL (0.083 %) Inhalation Solution for Nebulization - inhale 1 unit by NEBULIZATION route every 8 hours As needed; 1 box. Bactrim DS 800- 160 mg Oral Tablet - take 1 tablet by ORAL route every 12 hours for 7 days; 14 tablet. - Medication Reconciliation Form, Thank You Letter, Antibiotic Education, Prescription Opioid Use, Family Work Release form. - Follow up: Private Physician; When: 1 - 2 days; Reason: Re-evaluation by your physician. - Problem is new. - Symptoms have improved. Signatures: Dispatcher [employer] EDMS Cornell Burch MD MD cha Riggs, Erika, CUSTOMER EXPERT CUSTOMER EXPERT ed1 Anay Nettles, RN RN lp1 Corrections: (The following items were deleted from the chart) 03:20 00:42 05/17/2018 00:42 Discharged to Home. Impression: Allergic contact dermatitis; ed1 Urticaria; Bronchitis, not specified as acute or chronic; Cystitis. Condition is Fair. Discharge Instructions: Acute Bronchitis, Adult, Allergies, Adult, Hives, Metered Dose Inhaler with Spacer, Upper Respiratory Infection, Adult, Hives, [id number]. Prescriptions for Benadryl 25 mg Oral Capsule - take 1 capsule by ORAL route every 6 hours As needed; 30 tablet, Pepcid 20 mg Oral Tablet - take 1 tablet by ORAL route every 12 hours for 10 days; 20 tablet, Prednisone 20 mg Oral Tablet - take 2 tablet by ORAL route once daily for 5 days; 10 tablet, Albuterol Sulfate 90 mcg/actuation - inhale 1-2 puff by INHALATION route every 4-6 hours; 1 Inhaler, EpiPen 0.3 mg Injection auto-injector - inject 1 pen by INTRAMUSCULAR route one time Inject into the outer portion of the thigh, through clothing if necessary. Indicated in the emergency treatment of allergic reactions; 1 Container. and Forms are Medication Reconciliation Form, Thank You Letter, Antibiotic Education, Prescription Opioid Use. Follow up: Private Physician; When: 1 - 2 days; Reason: Re-evaluation by your physician. Problem is new. Symptoms have improved. estiven
--- NOTE | 2018-05-17 00:43 | ER ---
Nurse's Notes [facility] Name: Mirta Norton Age: 27 yrs Sex: Female : 1990 Arrival Date: 05/16/2018 Time: 23:13 Bed 2 Private MD: Diagnosis: Allergic contact dermatitis;Urticaria;Bronchitis, not specified as acute or chronic;Cystitis Presentation: 05/16 23:16 Presenting complaint: EMS states: Patient began to have an itchy throat before going to [facility] dinner; After arriving at restaurant, symptoms of hives, throat swelling began to worsen; On arrival to ED, symptoms have improved after meds administered. Transition of care: patient was not received from another setting of care. Onset of symptoms was May 16, 2018. Risk Assessment: Do you want to hurt yourself or someone else? Patient reports no desire to harm self or others. Initial Sepsis Screen: Does the patient meet any 2 criteria? No. Patient's initial sepsis screen is negative. Does the patient have a suspected source of infection? No. Patient's initial sepsis screen is negative. Care prior to arrival: Medication(s) given: 0.5 Epinephrine IV, 25 mg Benadryl IV, 25 mg Benadryl IM, 125 mg Solu-Medrol IV initiated. 20 GA, in the right antecubital area, Oxygen administered. via a non-rebreather mask. 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 - Social history:: Smoking status: Patient uses tobacco products, smokes one pack cigarettes per day. - Ebola Screening: : No symptoms or risks identified at this time. - Family history:: not pertinent. Screenin:32 Abuse screen: Denies threats or abuse. Denies injuries from another. Nutritional lp1 screening: No deficits noted. Tuberculosis screening: No symptoms or risk factors identified. Fall Risk None identified. Assessment: 23:29 General: Appears in no apparent distress. Behavior is appropriate for age. Pain: Denies lp1 pain. Neuro: Level of Consciousness is awake, alert, obeys commands, Oriented to person, place, time, situation. Cardiovascular: Patient's skin is warm and dry. Respiratory: Reports cough that is dry, Airway is patent Trachea midline Respiratory effort is even, Respiratory pattern is regular, Breath sounds are clear bilaterally. GI: No signs and/or symptoms were reported involving the gastrointestinal system. : No signs and/or symptoms were reported regarding the genitourinary system. EENT: Throat is clear. Derm: Skin is pink, warm \\T\\ dry. Musculoskeletal: No signs and/or symptoms reported regarding the musculoskeletal system. 05/17 01:59 Reassessment: Patient appears in no apparent distress at this time. Patient and/or ed1 family updated on plan of care and expected duration. Pain level reassessed. Patient is alert, oriented x 3, equal unlabored respirations, skin warm/dry/pink. Patient states feeling better. Patient states symptoms have improved. 03:16 Reassessment: Patient appears in no apparent distress at this time. Patient and/or ed1 family updated on plan of care and expected duration. Pain level reassessed. Patient is alert, oriented x 3, equal unlabored respirations, skin warm/dry/pink. Patient states feeling better. Patient states symptoms have improved. Vital Signs: 05/16 23:21 BP 129 / 93; Pulse 118; Resp 16; Temp 99.2(O); Pulse Ox 100% on R/A; Weight 79.38 kg lp1 (R); 23:45 BP 126 / 79; Pulse 111; Resp 20; Pulse Ox 100% on R/A; lp1 05/17 01:59 BP 114 / 78; Pulse 85; Resp 20; Pulse Ox 96% on R/A; Pain 0/10; ed1 03:16 BP 102 / 67; Pulse 69; Resp 16; Temp 97.6(O); Pulse Ox 100% on R/A; Pain 0/10; ed1 ED Course: 05/16 23:13 Patient arrived in ED. al2 23:16 Anay Nettles, RN is Primary Nurse. lp1 23:20 Triage completed. lp1 23:21 Arm band placed on left wrist. lp1 23:22 Cornell Burch MD is Attending Physician. [facility] 23:33 Patient has correct armband on for positive identification. Placed in gown. Bed in low lp1 position. Call light in reach. residential monitor on. Pulse ox on. NIBP on. 23:43 Initial lab(s) drawn, by me, sent to lab. Maintain EMS IV. Dressing intact. Good blood lp1 return noted. Site clean \\T\\ dry. Gauge \\T\\ site: 20g to R AC. 23:45 X-ray completed. Portable x-ray completed in exam room. Patient tolerated procedure sg4 well. 23:47 Chest Single View XRAY In Process Unspecified. EDMS 05/17 02:00 Awaiting: Completion of IV potassium. ed1 03:16 No provider procedures requiring assistance completed. IV discontinued, intact, ed1 bleeding controlled, No redness/swelling at site. Pressure dressing applied. Administered Medications: 05/16 23:49 Drug: NS 0.9% 1000 ml Route: IV; Rate: 1 bolus; Site: right antecubital; ed1 05/17 03:19 Follow up: IV Status: Completed infusion; IV Intake: 1000ml ed1 05/16 23:49 Drug: predniSONE 40 mg Route: PO; ed1 05/17 00:44 Follow up: Response: No adverse reaction ed1 00:01 Drug: Albuterol - atroVENT (3:1) (2.5 mg - 0.5 mg) 3 ml Route: Nebulizer; lp1 00:42 Follow up: Response: No change in condition; No change in condition; Pt states "This is ed1 making my cough worse." 00:02 Drug: Decadron - Dexamethasone 10 mg Route: IVP; Site: right antecubital; lp1 00:44 Follow up: Response: No adverse reaction; No change in condition ed1 00:02 Drug: Benadryl 25 mg Route: IVP; Site: right antecubital; lp1 00:43 Follow up: Response: No adverse reaction; No change in condition; No change in ed1 condition' Pt states "I am still itching." 00:02 Drug: Pepcid 40 mg Route: IVP; Site: right antecubital; lp1 00:43 Follow up: Response: No adverse reaction ed1 00:54 Drug: Potassium Chloride 20 mEq Route: IV; Rate: per protocol; Site: right antecubital; ed1 03:00 Follow up: IV Status: Completed infusion lp1 01:06 Drug: Potassium Effervescent Tablet 50 mEq Route: PO; ed1 03:01 Follow up: Response: No adverse reaction lp1 01:07 Drug: Tussionex Pennkinetic ER 5 ml Route: PO; ed1 03:00 Follow up: Response: Marked relief of symptoms lp1 01:07 Drug: Zofran 4 mg Route: IVP; Site: right antecubital; lp1 03:01 Follow up: Response: Nausea is decreased lp1 03:00 Drug: Rocephin - (cefTRIAXone) 1 grams Route: IVPB; Infused Over: 30 mins; Site: right lp1 antecubital; 03:10 Follow up: Response: No adverse reaction; IV Status: Completed infusion ed1 Intake: 03:19 IV: 1000ml; Total: 1000ml. ed1 Outcome: 00:42 Discharge ordered by MD. jean-baptiste 03:16 Discharged to home ambulatory, with significant other. ed1 03:16 Condition: good 03:16 Discharge instructions given to patient, Instructed on discharge instructions, follow up and referral plans. medication usage, Demonstrated understanding of instructions, follow-up care, medications, Prescriptions given X 7 03:20 Patient left the ED. ed1 Signatures: Dispatcher [employer] EDMS Cornell Burch MD MD cha Riggs, Andreina, WELL LOGGING CAPTAIN WELL LOGGING CAPTAIN ed1 Anay Nettles RN RN lp1 Kelsey Locke Susana sg4 Corrections: (The following items were deleted from the chart) 05/16 23:27 23:21 BP 129 / 93; Pulse 118bpm; Resp 16bpm; Pulse Ox 100% RA; Temp 99.2F Oral; lp1 lp1 05/17 03:19 03:16 Discharge instructions given to patient, Instructed on discharge instructions, ed1 follow up and referral plans. medication usage, Demonstrated understanding of instructions, follow-up care, medications, Prescriptions given X 6 ed1
[2018-05-17] MEDS ORDERED: POTASSIUM 25 MEQ EFFERV TAB ONE (00:56)
[2018-05-17] MEDS ORDERED: NA CHLORIDE 0.9% 250 ML ONE (00:56)
[2018-05-17] MEDS ORDERED: KCL 20 MEQ/100 mL IVPB 20 MEQ/100 ML BAG IV ONE (00:57)
[2018-05-17] MEDS ORDERED: HYDROCODONE/CHLORPHEN 5 ML/OSYR ONE (01:11)
[2018-05-17] MEDS ORDERED: ONDANSETRON 4 MG/2 ML VIAL ONE (01:11)
[2018-05-17] MEDS ORDERED: CEFTRIAXONE/SWI 1gm 1 GM/10 ML SYR ONE (03:04)
--- NOTE | 2018-05-17 09:40 | RAD REPORT ---
EXAM DESCRIPTION: RAD - Chest Single View - 05/16/2018 11:47 pm CLINICAL HISTORY: Cough COMPARISON: None. TECHNIQUE: AP portable chest image was obtained 2346 hours . FINDINGS: Lungs are clear. Heart and vasculature are normal. No measurable pleural effusion and no p neumothorax. No acute bony abnormality seen. No acute aortic findings suspected. IMPRESSION: No acute cardiopulmonary process.
== END 2018-05-17 03:20 | disposition home or self-care (01) ==
LOC: ER 23:12
DX: L23.9 Allergic contact dermatitis, unspecified cause (principal); J40 Bronchitis, not specified as acute or chronic; N30.90 Cystitis, unspecified without hematuria; F17.210 Nicotine dependence, cigarettes, uncomplicated; Z88.5 Allergy status to narcotic agent; Z91.013 Allergy to seafood; Z91.040 Latex allergy status
CPT/HCPCS: 36415; 71045; 80053; 81003; 81015; 84703; 85025; 87086; 87088; 94640; 96361; 96365; 96366; 96375; 99285; J0696; J1100; J2405; J7030; J7512